=== PATIENT | female | born 1935 | race Caucasian/White ===

== ENCOUNTER 2018-12-18 10:49 | Inpatient (IN) | payer MEDICARE, MEDICAID | END 2018-12-19 17:12 | disposition home or self-care (01) | LOC: ER 10:49 → EAST 12-19 14:09 → TELE 14:35 → TELE-EAST 16:34 | DX: R10.9 Unspecified abdominal pain (principal); C18.9 Malignant neoplasm of colon, unspecified; K57.90 Diverticulosis of intestine, part unspecified, without perforation or abscess without bleeding; J44.9 Chronic obstructive pulmonary disease, unspecified; F02.80 Dementia in other diseases classified elsewhere, unspecified severity, without behavioral disturbance, psychotic disturbance, mood disturbance, and anxiety; I10 Essential (primary) hypertension; M19.90 Unspecified osteoarthritis, unspecified site; M41.9 Scoliosis, unspecified; K21.9 Gastro-esophageal reflux disease without esophagitis ==